=== PATIENT | female | born 1985 | race Caucasian/White ===

== ENCOUNTER 2017-03-25 14:45 | Outpatient (RCR) | payer OTHER ==
[~2017-03-25 14:45] MED LIST: ADDERALL30 MG PO; AMOXICILLIN 50500 MG PO; AMOXICILLIN 8751 TAB PO; AMOXICILLIN875 MG PO; BACTRIM DS 8001 TAB PO; BIRTH CONTROL PILLS; CEPHALEXIN500 M1 PO; CLEOCIN HCL300 MG PO; DAZIDOX10 MG PO; DIFLUCAN100 MG PO; FLEXERIL 1010 MG/TAB PO; FLEXERIL10 MG PO; IBU600 MG PO; LEVAQUIN 5500 MG/TAB PO; LORTAB 10/500 51 TAB PO; LORTAB 5/500 501 TAB PO; LORTAB 7.5/5001 TAB; LORTAB 7.5/5001 TAB PO; MEDROL 4MG DOSPA4 MG PO; METRONIDAZOLE375 MG PO; METRONIDAZOLE500 MG PO; MOTRIN 800800 MG/TAB PO; NAPROSYN500 MG PO; PAXIL 20MG20 MG PO; PAXIL 30MG30 MG PO; PERCOCET 325 MG1 TA2 PO; PERCOCET 325 MG1 TAB PO; PERCOCET 5/321 UDTAB PO; PERCR 7.5 PO; PROZAC 10MG10 MG PO; PYRIDIUM 100MG100 MG PO; ROBAXIN 75750 MG/TAB PO; ROXICODONE 55 MG/TAB PO; ULTRAM50 MG PO; VALTREX PO; XANAX .25M0.25 MG/TA PO; ZITHROMAX 250M250 MG PO; ZITHROMAX Z PA250 MG PO; ZOLOFT 50MG50 MG PO; birth control
== END 2017-04-04 ==
LOC: MKS.ESL.PT
DX: M54.5 Low back pain (principal)

== ENCOUNTER 2017-04-09 16:15 | Outpatient (RCR) | payer OTHER | END 2017-07-04 | disposition home or self-care (01) | LOC: MKS.ESL.PT | DX: M54.5 Low back pain (principal) ==

== ENCOUNTER 2018-10-05 13:02 | Emergency (ER) | payer SELFPAY ==
[~2018-10-05] VITALS: Ht 160 cm; Wt 91.2 kg
[2018-10-05 13:08] VITALS: BP 137/83; PULSE 111; TEMP 98.3
== END 2018-10-05 15:04 | disposition left against medical advice (07) ==
LOC: COL.ER 13:02
DX: M25.511 Pain in right shoulder (principal)

== ENCOUNTER → 2018-10-20 | Outpatient (CLI) | payer SELFPAY | LOC: COL.RAD 08:48 | DX: M75.101 Unspecified rotator cuff tear or rupture of right shoulder, not specified as traumatic (principal); M89.311 Hypertrophy of bone, right shoulder; M47.812 Spondylosis without myelopathy or radiculopathy, cervical region ==

== ENCOUNTER → 2018-12-08 | Outpatient (CLI) | payer SELFPAY | LOC: COL.RAD 12-06 07:30 | DX: M47.816 Spondylosis without myelopathy or radiculopathy, lumbar region (principal) ==

== ENCOUNTER 2019-01-04 11:33 | Outpatient (RCR) | payer SELFPAY | END 2019-02-02 15:11 | disposition home or self-care (01) | LOC: MKS.ESL.PT 11:33 | DX: M54.2 Cervicalgia (principal) ==

== ENCOUNTER 2019-06-11 13:25 | Emergency (ER) | payer SELFPAY ==
[~2019-06-11] VITALS: Ht 160 cm; Wt 93.2 kg
[2019-06-11 13:33] VITALS: TEMP 98.6
[2019-06-11] MEDS ORDERED: PERCOCET 325 MG1 TA2 PO (13:39)
[2019-06-11] MEDS ORDERED: ZANAFLEX CAPSULE4 MG PO (13:39)
[2019-06-11] MEDS ORDERED: LIDODERM 5% PATC1 EA TP (14:46)
[2019-06-11 15:00] VITALS: BP 119/88; PULSE 88
== END 2019-06-11 15:00 | disposition home or self-care (01) ==
LOC: COL.ER 13:25
DX: M25.511 Pain in right shoulder (principal); F41.9 Anxiety disorder, unspecified; F32.9 Major depressive disorder, single episode, unspecified; F17.210 Nicotine dependence, cigarettes, uncomplicated; Z98.890 Other specified postprocedural states
CPT/HCPCS: J1885

== ENCOUNTER 2019-06-20 15:04 | Emergency (ER) | payer SELFPAY ==
[~2019-06-20] VITALS: Ht 160 cm; Wt 93.2 kg
[~2019-06-20 15:04] MED LIST changes: +LIDODERM 5% PATC1 EA TP; +ZANAFLEX CAPSULE4 MG PO
[2019-06-20 15:35] VITALS: TEMP 98.4
[2019-06-20] MEDS ORDERED: LIDODERM 5% PATC1 EA TP (16:26)
[2019-06-20] MEDS ORDERED: FLEXERIL 1010 MG/TAB PO (16:26)
[2019-06-20 16:38] VITALS: BP 153/98
[2019-06-20 17:33] VITALS: PULSE 87
== END 2019-06-20 17:34 | disposition home or self-care (01) ==
LOC: COL.ER 15:04
DX: M54.2 Cervicalgia (principal)

== ENCOUNTER → 2019-06-23 | Outpatient (CLI) | payer SELFPAY | LOC: COL.RAD 06:46 | DX: S46.811A Strain of other muscles, fascia and tendons at shoulder and upper arm level, right arm, initial encounter (principal) ==

== ENCOUNTER → 2019-07-20 | Outpatient (CLI) | payer SELFPAY | LOC: COL.RAD 08:41 | DX: M47.812 Spondylosis without myelopathy or radiculopathy, cervical region (principal); G89.29 Other chronic pain ==

== ENCOUNTER → 2019-08-02 | Outpatient (CLI) | payer SELFPAY | LOC: COL.RAD 09:25 | DX: M47.814 Spondylosis without myelopathy or radiculopathy, thoracic region (principal); M51.24 Other intervertebral disc displacement, thoracic region ==

== ENCOUNTER → 2019-09-21 | Outpatient (CLI) | payer SELFPAY | LOC: COL.RAD 14:39 | DX: M43.8X4 Other specified deforming dorsopathies, thoracic region (principal); M43.8X6 Other specified deforming dorsopathies, lumbar region; M47.814 Spondylosis without myelopathy or radiculopathy, thoracic region; M47.816 Spondylosis without myelopathy or radiculopathy, lumbar region; M48.061 Spinal stenosis, lumbar region without neurogenic claudication; Z87.39 Personal history of other diseases of the musculoskeletal system and connective tissue ==

== ENCOUNTER 2020-03-20 14:45 | Outpatient (RCR) | payer SELFPAY | END 2020-03-21 | disposition still patient (30) | LOC: MKS.ESL.PT | DX: G89.29 Other chronic pain (principal); M54.6 Pain in thoracic spine ==

== ENCOUNTER → 2020-09-03 | Outpatient (CLI) | payer SELFPAY | LOC: COL.RAD 13:04 | DX: M25.411 Effusion, right shoulder (principal) ==

== ENCOUNTER 2020-10-02 14:45 | Outpatient (RCR) | payer SELFPAY | END 2020-12-15 | disposition home or self-care (01) | LOC: MKS.ESL.PT | DX: M25.511 Pain in right shoulder (principal); M54.5 Low back pain; G89.29 Other chronic pain ==

== ENCOUNTER → 2021-06-06 | Outpatient (CLI) | payer SELFPAY | LOC: COL.RAD 06-02 10:30 | DX: M53.3 Sacrococcygeal disorders, not elsewhere classified (principal); M51.27 Other intervertebral disc displacement, lumbosacral region; M48.061 Spinal stenosis, lumbar region without neurogenic claudication; M51.26 Other intervertebral disc displacement, lumbar region | CPT/HCPCS: A9585 ==

== ENCOUNTER 2021-08-07 18:44 | Emergency (ER) | payer SELFPAY ==
[~2021-08-07] VITALS: Ht 160 cm; Wt 100.0 kg
[2021-08-07 18:49] VITALS: TEMP 98.7
[2021-08-07] MEDS ORDERED: MEDROL 4MG DOSPA4 MG PO (19:35)
[2021-08-07 19:56] VITALS: BP 127/81; PULSE 81
== END 2021-08-07 19:58 | disposition home or self-care (01) ==
LOC: COL.ER 18:44
DX: G89.29 Other chronic pain (principal); M54.50 Low back pain, unspecified; F17.200 Nicotine dependence, unspecified, uncomplicated; Z88.6 Allergy status to analgesic agent; Z79.891 Long term (current) use of opiate analgesic
CPT/HCPCS: J1170; J1885

== ENCOUNTER → 2021-08-11 | Outpatient (CLI) | payer SELFPAY | LOC: MHCPAIN 14:08 | DX: M47.817 Spondylosis without myelopathy or radiculopathy, lumbosacral region (principal); M53.3 Sacrococcygeal disorders, not elsewhere classified; M54.16 Radiculopathy, lumbar region; M96.1 Postlaminectomy syndrome, not elsewhere classified | CPT/HCPCS: G0463 ==

== ENCOUNTER → 2021-08-21 | Outpatient (CLI) | payer SELFPAY | LOC: COL.RAD 12:18 | DX: G95.9 Disease of spinal cord, unspecified (principal); M51.26 Other intervertebral disc displacement, lumbar region | CPT/HCPCS: A9575 ==

== ENCOUNTER → 2021-09-18 | Outpatient (CLI) | payer SELFPAY | LOC: MHCPAIN 08-19 14:04 | DX: M47.817 Spondylosis without myelopathy or radiculopathy, lumbosacral region (principal); M96.1 Postlaminectomy syndrome, not elsewhere classified; M54.17 Radiculopathy, lumbosacral region | CPT/HCPCS: J1100; Q9967 ==

== ENCOUNTER → 2021-10-15 | Outpatient (CLI) | payer SELFPAY | LOC: MHCPAIN 13:41 | DX: M47.817 Spondylosis without myelopathy or radiculopathy, lumbosacral region (principal); M53.3 Sacrococcygeal disorders, not elsewhere classified; M54.16 Radiculopathy, lumbar region; M96.1 Postlaminectomy syndrome, not elsewhere classified | CPT/HCPCS: G0463 ==

== ENCOUNTER → 2021-10-30 | Outpatient (CLI) | payer SELFPAY | LOC: MHCPAIN 13:39 | DX: M47.817 Spondylosis without myelopathy or radiculopathy, lumbosacral region (principal); M96.1 Postlaminectomy syndrome, not elsewhere classified; M54.16 Radiculopathy, lumbar region; M53.3 Sacrococcygeal disorders, not elsewhere classified | CPT/HCPCS: J1100; Q9967 ==

== ENCOUNTER 2021-11-14 15:30 | Outpatient (RCR) | payer SELFPAY | END 2021-11-15 | disposition home or self-care (01) | LOC: MKS.ESL.PT | DX: M51.27 Other intervertebral disc displacement, lumbosacral region (principal); M53.3 Sacrococcygeal disorders, not elsewhere classified ==

== ENCOUNTER 2021-11-20 10:27 | Outpatient (RCR) | payer SELFPAY | END 2021-12-16 | disposition home or self-care (01) | LOC: MKS.ESL.PT | DX: M51.27 Other intervertebral disc displacement, lumbosacral region (principal); M53.3 Sacrococcygeal disorders, not elsewhere classified; G89.29 Other chronic pain ==

== ENCOUNTER → 2021-12-01 | Outpatient (CLI) | payer SELFPAY | LOC: MHCPAIN 13:56 | DX: M47.817 Spondylosis without myelopathy or radiculopathy, lumbosacral region (principal); M53.3 Sacrococcygeal disorders, not elsewhere classified; M54.50 Low back pain, unspecified; M96.1 Postlaminectomy syndrome, not elsewhere classified | CPT/HCPCS: G0463 ==

== ENCOUNTER → 2022-04-13 | Outpatient (CLI) | payer OTHER | LOC: COL.RAD 09:07 | DX: M25.551 Pain in right hip (principal); M25.552 Pain in left hip ==

== ENCOUNTER → 2023-03-30 | Outpatient (CLI) | payer OTHER | LOC: MHCPAIN 14:10 | DX: M48.061 Spinal stenosis, lumbar region without neurogenic claudication (principal); M96.1 Postlaminectomy syndrome, not elsewhere classified; M54.16 Radiculopathy, lumbar region; G89.29 Other chronic pain | CPT/HCPCS: G0463 ==

== ENCOUNTER → 2023-04-26 | Outpatient (CLI) | payer OTHER | LOC: MHCPAIN 11:48 | DX: M47.817 Spondylosis without myelopathy or radiculopathy, lumbosacral region (principal); M54.16 Radiculopathy, lumbar region | CPT/HCPCS: J1100; Q9967 ==

== ENCOUNTER → 2023-06-16 | Outpatient (CLI) | payer SELFPAY | LOC: MHCPAIN 13:46 | DX: M51.26 Other intervertebral disc displacement, lumbar region (principal); M96.1 Postlaminectomy syndrome, not elsewhere classified; M48.062 Spinal stenosis, lumbar region with neurogenic claudication; F17.210 Nicotine dependence, cigarettes, uncomplicated | CPT/HCPCS: G0463 ==